=== PATIENT | male | born 1945 | race Caucasian/White ===

== ENCOUNTER → 2024-11-17 10:50 | Outpatient (REF) | payer OTHER, SELFPAY | LOC: RCS 10:50 | PROVIDERS: ATTENDING PHYSICIAN Nurse Practitioner Family; FAMILY PHYSICIAN Internal Medicine | DX: R07.89 Other chest pain (principal); R00.2 Palpitations | CPT/HCPCS: 93005 ==

== ENCOUNTER → 2024-12-08 10:05 | Outpatient (REF) | payer OTHER, SELFPAY | LOC: RCS 10:05 | PROVIDERS: ATTENDING PHYSICIAN Nurse Practitioner Family; OTHER PHYSICIAN Internal Medicine Cardiovascular Disease | DX: R07.89 Other chest pain (principal) | CPT/HCPCS: 93017; 93350 ==

== ENCOUNTER → 2025-01-20 15:36 | Outpatient (REF) | payer OTHER, SELFPAY | LOC: HWRCS 15:36 | PROVIDERS: ATTENDING PHYSICIAN Internal Medicine Cardiovascular Disease; FAMILY PHYSICIAN Nurse Practitioner Family | DX: Z98.890 Other specified postprocedural states (principal) | CPT/HCPCS: 93306 ==